=== PATIENT | female | born 1985 | race Caucasian/White ===

== ENCOUNTER 2017-08-15 07:20 | Emergency (ER) | payer OTHER ==
[~2017-08-15] VITALS: Ht 160 cm; Wt 90.7 kg
[~2017-08-15 07:20] MED LIST: BACTRIM DS TAB1 EACH PO; BENTYL 20 MG TA20 M1 PO; HYDROCODONE-AP1 EAC6 PO; NAPROSYN500 MG PO; NORCO 5-325 TA1 EAC1 PO; NORCO 5-325 TA1 EACH PO; ZANAFLEX4 MG PO; ZOFRAN ODT4 M1 PO; ZOFRAN ODT4 MG PO; ZOFRAN ODT4 MG SUBLING; ZOFRAN4 MG PO
[2017-08-15] MEDS ORDERED: NOHOMEMEDICATIONS (07:32)
[2017-08-15] MEDS ORDERED: NAPROSYN500 MG PO (08:58)
[2017-08-15 09:10] VITALS: BP 107/40
== END 2017-08-15 09:12 | disposition home or self-care (01) ==
LOC: M.ERS 07:20
DX: S93.602A Unspecified sprain of left foot, initial encounter (principal); W20.8XXA Other cause of strike by thrown, projected or falling object, initial encounter; Y93.89 Activity, other specified; Y92.89 Other specified places as the place of occurrence of the external cause; Y99.8 Other external cause status

== ENCOUNTER 2017-09-08 04:40 | Emergency (ER) | payer OTHER ==
[~2017-09-08] VITALS: Ht 160 cm; Wt 81.7 kg
[~2017-09-08 04:40] MED LIST changes: +NOHOMEMEDICATIONS
[2017-09-08 05:26] LABS: URINE BILIRUBIN NEGATIVE (Negative); URINE BLOOD NEGATIVE (Negative); URINE CLARITY CLEAR; URINE COLOR YELLOW; URINE GLUCOSE-RANDOM NEGATIVE (Negative); URINE KETONES NEGATIVE (Negative); URINE LEUKOCYTES-REFLEX NEGATIVE (Negative); URINE NITRITE-REFLEX NEGATIVE (Negative); URINE PROTEIN NEGATIVE (Negative); URINE UROBILINOGEN 0.2 E.U./dl (0.2-1.0)
[2017-09-08] MEDS ORDERED: IBUPROFEN 800800 MG PO (05:47)
[2017-09-08] MEDS ORDERED: FLAGYL500 MG PO (05:47)
[2017-09-08] MEDS ORDERED: PHENERGAN 25 MG25 MG PO (05:47)
[2017-09-08 06:03] VITALS: BP 121/55
== END 2017-09-08 06:05 | disposition home or self-care (01) ==
LOC: M.ERS 04:40
PROVIDERS: Personal Emergency Response Attendant
DX: N76.0 Acute vaginitis (principal); B96.89 Other specified bacterial agents as the cause of diseases classified elsewhere; F17.210 Nicotine dependence, cigarettes, uncomplicated; Z88.0 Allergy status to penicillin

== ENCOUNTER 2017-11-27 13:35 | Emergency (ER) | payer OTHER ==
[~2017-11-27] VITALS: Ht 165.1 cm; Wt 96.6 kg
[~2017-11-27 13:35] MED LIST changes: +FLAGYL500 MG PO; +IBUPROFEN 800800 MG PO; +PHENERGAN 25 MG25 MG PO
[2017-11-27] MEDS ORDERED: ULTRAM 50MG TAB50 MG PO (14:48)
[2017-11-27 15:14] VITALS: BP 118/57
== END 2017-11-27 15:15 | disposition home or self-care (01) ==
LOC: M.ERS 13:35
DX: S50.11XA Contusion of right forearm, initial encounter (principal); Y04.0XXA Assault by unarmed brawl or fight, initial encounter; Y93.89 Activity, other specified; Y92.89 Other specified places as the place of occurrence of the external cause; Y99.8 Other external cause status; F17.210 Nicotine dependence, cigarettes, uncomplicated; Z88.0 Allergy status to penicillin

== ENCOUNTER 2020-02-20 11:07 | Emergency (ER) | payer OTHER ==
[~2020-02-20] VITALS: Ht 165.1 cm; Wt 86.2 kg
[~2020-02-20 11:07] MED LIST changes: +ULTRAM 50MG TAB50 MG PO
[2020-02-20] MEDS ORDERED: MEDROLDOSEPACK PO (11:53)
[2020-02-20] MEDS ORDERED: DIPHENHYDRAMINE25 M3 PO (11:53)
[2020-02-20 12:01] LABS: URINE BILIRUBIN NEGATIVE (Negative); URINE BLOOD NEGATIVE (Negative); URINE CLARITY CLEAR; URINE COLOR YELLOW; URINE GLUCOSE-RANDOM NEGATIVE (Negative); URINE KETONES NEGATIVE (Negative); URINE LEUKOCYTES-REFLEX 1+ (Negative); URINE NITRITE-REFLEX NEGATIVE (Negative); URINE PROTEIN NEGATIVE (Negative); URINE SPECIFIC GRAVITY <= 1.005 (1.005-1.030); URINE UROBILINOGEN 0.2 E.U./dl (0.2-1.0)
[2020-02-20 12:16] LABS: BACTERIA-REFLEX 1-9 Few /HPF (None Seen); CASTS None Seen /LPF (None Seen); CRYSTALS None Seen /LPF (None Seen); SQUAMOUS 0-3 Few /LPF (0-3); URINE RBC 0-2 Rare /HPF (0-2); URINE WBC-REFLEX 0-5 Rare /HPF (0-5)
[2020-02-20 13:08] VITALS: BP 109/62
[2020-02-21 09:08] LABS: HIV-1/HIV-2 ANTIBODY Non Reactive (Non Reactive)
== END 2020-02-20 13:09 | disposition home or self-care (01) ==
LOC: M.ERS 11:07
PROVIDERS: Personal Emergency Response Attendant
DX: Z23 Encounter for immunization (principal); Z88.0 Allergy status to penicillin; F17.210 Nicotine dependence, cigarettes, uncomplicated

== ENCOUNTER 2020-08-29 13:02 | Emergency (ER) | payer OTHER ==
[~2020-08-29] VITALS: Ht 160 cm; Wt 81.7 kg
[~2020-08-29 13:02] MED LIST changes: +DIPHENHYDRAMINE25 M3 PO; +MEDROLDOSEPACK PO
[2020-08-29 13:31] LABS: ABSOLUTE BASOPHILS 0.1 thou/uL (0.0-0.2); ABSOLUTE EOSINOPHILS 0.3 thou/uL (0.0-0.7); ABSOLUTE LYMPHOCYTES 3.4 thou/uL (0.8-5.3); ABSOLUTE MONOCYTES 1.3 thou/uL (0.0-1.2); ABSOLUTE NEUTROPHILS 5.4 thou/uL (1.6-8.1); BASOPHILS 0.5 %; EOSINOPHILS 2.9 %; HEMATOCRIT 39.3 % (37.0-47.0); HEMOGLOBIN 13.2 gm/dL (12.0-15.0); LYMPHOCYTES 32.8 %; MCHC 33.4 g/dL (28.0-37.0); MCV 92.7 fL (80.0-100.0); MONOCYTES 12.2 %; MPV 7.8 fl. (7.2-11.1); NUCLEATED RBCS 0 /100WBC; PLATELET COUNT* 336 thou/uL (150-400); POLYS 51.6 %; RBC 4.24 mil/uL (4.20-5.00); RDW-CV 13.8 % (10.5-14.5); WBC 10.5 thou/uL (4.0-11.0)
[2020-08-29 13:42] LABS: CALCIUM 8.7 mg/dL (8.5-10.1); CREATININE 0.8 mg/dL (0.6-1.3); POTASSIUM 3.7 mmol/L (3.5-5.1)
[2020-08-29 13:43] LABS: APTT 26.8 Seconds (25.0-31.3); PROTIME 10.4 Seconds (9.20-11.50)
[2020-08-29 14:06] LABS: ALBUMIN 3.4 g/dL (3.4-5.0); CK-MB MASS 0.6 ng/mL (<0.5-3.6); MAGNESIUM 1.7 mg/dL (1.8-2.4); TOTAL BILIRUBIN 0.3 mg/dL (<0.1-1.0); TOTAL PROTEIN 7.4 g/dL (6.4-8.2)
[2020-08-29 14:30] VITALS: BP 109/62
--- NOTE | 2020-08-29 15:50 | EKG ---
[place] [address] ELECTROCARDIOGRAM REPORT Name: KETTY COPPOLA Room: [facility]#: [id number] Admission: 08/29/20 Attend Phys: Discharge: 08/29/20 Date of : 83 Date of Service: 08/29/20 1307 Report #: [id number] THIS REPORT FOR: //name// [facility] ED Test Date: 2020-08-29 Test Time: 13:07:26 Pat Name: KETTY COPPOLA Department: Room: Gender: F Software Quality Engineer: [facility] : 1985 Requested By: Talat Orourke Order Number: [id number] MD: Tres Iniguez Measurements Intervals [place] Rate: 84 P: 72 MD: 165 QRS: 66 QRSD: 90 T: 31 QT: 362 QTc: 428 Interpretive Statements Sinus rhythm Baseline wander in lead(s) II,III,aVL,aVF,V3,V5 Compared to ECG 10/21/2016 00:27:36 No significant changes Electronically Signed On 08-29-2020 15:50:00 CDT by Tres Iniguez [email or web address] <ELECTRONICALLY SIGNED> By: Tres Iniguez MD, FAC 08/29/20 1550 1307 1307 Tres Iniguez MD, [facility] /EPI
== END 2020-08-29 14:30 | disposition home or self-care (01) ==
LOC: M.ERS 13:02
PROVIDERS: Family Medicine
DX: R07.89 Other chest pain (principal); R53.83 Other fatigue; R11.10 Vomiting, unspecified; F17.210 Nicotine dependence, cigarettes, uncomplicated; Z88.0 Allergy status to penicillin

== ENCOUNTER 2020-10-09 15:34 | Emergency (ER) | payer OTHER ==
[~2020-10-09] VITALS: Ht 160 cm; Wt 86.2 kg
[2020-10-09] MEDS ORDERED: NOHOMEMEDICATIONS (15:55)
[2020-10-09 15:56] LABS: URINE BILIRUBIN NEGATIVE (Negative); URINE BLOOD 1+ (Negative); URINE CLARITY CLEAR; URINE COLOR YELLOW; URINE GLUCOSE-RANDOM NEGATIVE (Negative); URINE KETONES NEGATIVE (Negative); URINE LEUKOCYTES-REFLEX 1+ (Negative); URINE NITRITE-REFLEX NEGATIVE (Negative); URINE PROTEIN NEGATIVE (Negative); URINE SPECIFIC GRAVITY >= 1.030 (1.005-1.030); URINE UROBILINOGEN 0.2 E.U./dl (0.2-1.0)
[2020-10-09 16:05] LABS: CASTS None Seen /LPF (None Seen); CRYSTALS None Seen /LPF (None Seen); MUCUS None Seen strn/LPF (None Seen); SQUAMOUS >10 Many /LPF (0-3)
[2020-10-09 16:06] LABS: BACTERIA-REFLEX 1-9 Few /HPF (None Seen); URINE RBC 0-2 Rare /HPF (0-2); URINE WBC-REFLEX 6-15 Few /HPF (0-5)
[2020-10-09 17:20] VITALS: BP 142/79
== END 2020-10-09 17:21 | disposition home or self-care (01) ==
LOC: M.ERS 15:34
PROVIDERS: Nurse Practitioner Family
DX: S30.814A Abrasion of vagina and vulva, initial encounter (principal); N89.8 Other specified noninflammatory disorders of vagina; F17.210 Nicotine dependence, cigarettes, uncomplicated; Z85.41 Personal history of malignant neoplasm of cervix uteri; Z88.0 Allergy status to penicillin; X58.XXXA Exposure to other specified factors, initial encounter; Y93.89 Activity, other specified; Y92.89 Other specified places as the place of occurrence of the external cause; Y99.8 Other external cause status